=== PATIENT | male | born 1975 | race Hispanic/Latino ===

== ENCOUNTER 2018-03-10 07:34 | Emergency (ER) | payer BC, SELFPAY ==
[2018-03-10 07:35] VITALS: BP 189/103; PULSE 63; RESP 24; TEMP 36.6; O2SAT 97; BMI 30.9
--- NOTE | 2018-03-10 07:51 | CT_ITS ---
STUDY: CT ABDOMEN AND PELVIS WITHOUT CONTRAST REASON FOR EXAM: Male, 42 years old. Left flank pain for 2 days RADIATION DOSAGE (If Supplied By Facility): CTDIvol = ( 9.28 ) mGy, DLP = ( 458.86 ) mGycm TECHNIQUE: Transaxial images were obtained from the dome of the diaphragm to the symphysis pubis without oral contrast, and without intravenous contrast. Sagittal and coronal images were reconstructed. Individualized dose optimization techniques were used for this CT. COMPARISON: None. FINDINGS: Lung bases demonstrate no evidence for consolidative process. Liver and spleen appear unremarkable. The pancreas and adrenal glands are within normal limits. Gallbladder is nondistended. The bowel gas pattern is nonobstructive Appendix appears unremarkable. Right kidney appears unremarkable. Mild left-sided hydronephrosis and hydroureter approximately 3 mm obstructing stone in the proximal left ureter. No free fluid in the pelvis. No free air within the peritoneal cavity. Osseous structures demonstrate no acute abnormalities. IMPRESSION:Mild left-sided hydronephrosis and hydroureter with an approximately 3 mm obstructing stone in the proximal left ureter. Electronically Signed: Claude Santizo, at 8:47 EDT Tel , Service support , CT/Abdomen/Pelvis without Cont
--- NOTE | 2018-03-10 08:01 | ED.VISSUMM ---
- ER Visit Summary Date of Service: 03/10/18 Chief Complaint: Left flank pain History of Present Illness: The patient is a 42 M with no primary care physician. Reports she has left flank pain that radiates down to the left lower abdomen left testicle that began yesterday. It is a continuous sharp pain that waxes and wanes. It is 9 out of 10 at worst and 5 out of 10 currently. Is worsened by nothing relieved by nothing. Reports is been nausea and vomited once. No blood in his emesis. His last bowel was yesterday. He has had no melena or hematochezia. Reports that his urine yesterday did have a pink tinge. He denies any dysuria or frequency. He states this is similar to when he had kidney stones in the past. Physical Examination: Vitals: Stable. Afebrile. General: Well-nourished and well-developed. Head: Normocephalic atraumatic. Neck: Supple, no lymphadenopathy. No JVD. Nontender. Cardiovascular: Regular rate and rhythm. No murmurs. Respiratory: No respiratory distress. Clear to auscultation bilaterally. Abdominal: Soft, nontender, nondistended, normal bowel sounds. No guarding, rebound, or peritoneal signs. Back: Nontender. Extremities: Nontender, no edema. Skin: Normal color, no rash. Neurologic: Alert and oriented ?3. Cranial nerves II through XII are intact. Normal strength and sensation. Psych: Normal affect. Test Results: UA has 5-10 red blood cells. No evidence of infection. CT flank shows mild left-sided hydronephrosis and hydroureter with a 3 mm obstructing stone in the proximal left ureter. Emergency Department Course and Treatment: Patient had an IV placed. He was given Toradol, Zofran, and morphine IV. He is resting comfortably. Treatment Plan: Patient will be discharged with Percocet and naproxen. He is given a urine strainer. Instructed to follow Dr. Schulte in 1 week if he does not pass the stone. Return to the emergency department for any worsening symptoms. Disposition: To home in improved and stable condition. Impression: 1. Left ureterolithiasis. This note was generated with [employer] software. It may contain incorrect words, spelling, and punctuation that were not noted in review of the chart prior to signing ED Disposition - Plan for ED Patient: Chief Complaint: Flank Pain Instructions: ED Stone Renal W Colic Prescriptions: Oxycodone HCl/Acetaminophen [Percocet 5/325] 1 tablet PO Q6H PRN PRN 5 Days #20 tablet PRN Reason: Pain Naproxen [Naprosyn] 500 mg PO BID #14 tablet Referrals: Myron Schulte MD [STAFF PHYSICIAN] - 1 Week if not improving
[2018-03-10] MEDS: Ondansetron 4 MG/2 ML Vial IV (08:12)
[2018-03-10] MEDS: 0.9% Normal Saline 1,000 ML 250 ML IV (08:12)
[2018-03-10] MEDS: Ketorolac 30 MG/ML Syringe IV (08:14)
[2018-03-10] MEDS: Morphine 4 MG/ML Syringe IV (08:15)
[2018-03-10 09:08] VITALS: BP 147/92; PULSE 75; O2SAT 96
[2018-03-10 09:16] LABS: Bacteria 0 SEEN /hpf (None Seen); Mucous, Urine 0 SEEN /hpf (<or=2+); Squamous Epithelial Cells - UA 0 SEEN /hpf (0-5); White Blood Cells 0 SEEN /hpf (0-5)
[2018-03-10 09:19] LABS: Color, Urine Straw (Yellow); Glucose, Dipstick Normal (Normal); Ketone-Dipstick Negative (Negative); Leukocyte Esterase-Dipstick Negative /ul (Negative); Nitrite-Dipstick Negative (Negative); Occult Blood-Urine 250 /ul (Negative); Protein-Dipstick Negative (Negative); Specific Gravity, Urine 1.005 (1.002-1.030); Urine Bilirubin Dipstick Negative (Negative); Urine Clarity Clear (Clear); Urine Urobilinogen Normal (Normal)
[2018-03-10 09:27] LABS: Red Blood Cells-Urine 5-10 SEEN /hpf (0-5)
[2018-03-10 10:09] VITALS: BP 140/90; PULSE 77; RESP 18; TEMP 36.6
== END 2018-03-10 10:10 | disposition home or self-care (01) ==
LOC: ED 08:08
PROVIDERS: Emergency Provider Emergency Medicine
DX: N20.1 Calculus of ureter (principal); N13.30 Unspecified hydronephrosis; Z87.442 Personal history of urinary calculi
CPT/HCPCS: 74176; 81001; 99283